=== PATIENT | female | born 1940 | race African-American/Black ===

== ENCOUNTER 2017-03-29 21:41 | Emergency (ER) | payer MEDICARE ==
[~2017-03-29 21:41] MED LIST: *DENIES; ATV.5 PO; B1100 PO; BACDS PO; MCZ25 PO; MEDROLPAK4 PO; OTC VITAMIN D PO; TRANSSCOP TOP
== END 2017-03-29 23:06 | disposition home or self-care (01) ==
LOC: ER 21:41
PROC: 0S9D3ZZ Drainage of Left Knee Joint, Percutaneous Approach (ICD-10-PCS; principal; 2017-03-29)
DX: M25.462 Effusion, left knee (principal); Z85.3 Personal history of malignant neoplasm of breast; Z88.0 Allergy status to penicillin; Z88.5 Allergy status to narcotic agent; Z79.899 Other long term (current) drug therapy
CPT/HCPCS: 96372; 99283; J1885